=== PATIENT | female | born 1970 | race Caucasian/White ===

== ENCOUNTER 2021-04-04 14:27 | Emergency (ER) | payer OTHER ==
[2021-04-04 15:00] VITALS: BP 163/97
[2021-04-04] MEDS ORDERED: IBUPROFEN 600 MG TAB PO ONE (17:13)
[2021-04-04] MEDS ORDERED: HYOSCYAMINE SUBL 0.125 MG TAB SL ONE (17:14)
[2021-04-04] MEDS ORDERED: ONDANSETRON 4 MG ODT TAB PO ONE (17:14)
[2021-04-04 17:31] LABS: Basophils # (Auto) 0.1 K/mm3 (0.0-0.1); Basophils % (Auto) 0.9 % (0.0-1.8); Eosinophils # (Auto) 0.1 K/mm3 (0.0-0.4); Eosinophils % (Auto) 1.1 % (0.0-4.3); Hematocrit 40.6 % (30.3-42.9); Hemoglobin 12.8 gm/dl (10.1-14.3); Lymphocytes # (Auto) 2.6 K/mm3 (1.2-5.4); Lymphocytes % (Auto) 37.1 % (13.4-35.0); Mean Corpuscular HGB Conc 32 % (30-34); Mean Corpuscular Volume 82 fl (79-97); Monocytes # (Auto) 0.3 K/mm3 (0.0-0.8); Monocytes % (Auto) 4.1 % (0.0-7.3); Platelet Count 255 K/mm3 (140-440); Red Blood Count 4.98 M/mm3 (3.65-5.03); Red Cell Distribution Width 15.4 % (13.2-15.2)
[2021-04-04 17:46] LABS: Alanine Aminotransferase 18 units/L (7-56); Albumin 4.9 g/dL (3.9-5); Blood Urea Nitrogen 7 mg/dL (7-17); Hemolysis Index 195
[2021-04-04 17:53] LABS: BUN/Creatinine Ratio 14
[2021-04-04] MEDS ORDERED: SODIUM CHLORIDE 0.9% 1000 ML 1,000 ML IV ONE (18:43)
--- NOTE | 2021-04-04 19:00 | Emergency Department Report ---
ED Abdominal Pain HPI - General Chief Complaint: Weakness Stated Complaint: DIZZINESS,ABD PAIN Time Seen by Provider: 04/04/21 17:12 Source: patient Mode of arrival: Ambulatory Limitations: No Limitations - History of Present Illness Initial Comments: The patient was evaluated in the emergency department for symptoms described in the history of present illness. He/she was evaluated in the context of the global COVID-19 pandemic, which necessitated consideration that the patient might be at risk for infection with the virus that causes COVID-19. In stitutional protocols and algorithms that pertain to the evaluation of patients at risk for COVID-19 are in a state of rapid change based on information released by regulatory bodies including the CDC and federal and state organizations. These policies and algorithms were followed during the patient's care in the emergency department. Please note that these policies, procedures and recommendations changed on a rapid basis. 50-year-old female presents to the emergency room complaining of dizziness like the room is spinning, headache epigastric pain x4 days. Patient states she had vomited the first 2 days. She denies any alcohol use. Her last menstrual period was 1 year ago. She denies any ear pain does have a cough denies any Covid. Has been vaccinated. Past medical history of hypertension hypercholesterolemia diabetes. Patient reports abdominal pain worse with dizzin ess Severity scale (0 -10): 7 - Related Data Previous Rx's Medication Instructions Recorded Last Taken Type Hyoscyamine Subl [Levsin Sl 0.125 0.125 mg SL Q6HR PRN #12 tab 04/04/21 Unknown Rx TAB] Ondansetron [Zofran Odt] 4 mg PO Q8HR PRN #15 tab.rapdis 04/04/21 Unknown Rx hydrOXYzine HCL [Atarax] 25 mg PO Q6HR PRN #15 tablet 04/04/21 Unknown Rx Allergies Allergy/AdvReac Type Severity Reaction Status Date / Time No Known Allergies Allergy Unverified 04/04/21 14:57 ED Review of Systems ROS: Stated complaint: DIZZINESS,ABD PAIN Other details as noted in HPI Comment: All other systems reviewed and negative ED Past Medical Hx - Past Medical History Previous Medical History?: Yes Hx Hypertension: Yes Hx Diabetes: Yes Additional medical history: high cholesterol - Surgical History Past Surgical History?: Yes Additional Surgical History: bariatric, - Medications Home Medications: Home Medications Medication Instructions Recorded Confirmed Last Taken Type Hyoscyamine Subl [Levsin Sl 0.125 0.125 mg SL Q6HR PRN #12 tab 04/04/21 Unknown Rx TAB] Ondansetron [Zofran Odt] 4 mg PO Q8HR PRN #15 tab.rapdis 04/04/21 Unknown Rx hydrOXYzine HCL [Atarax] 25 mg PO Q6HR PRN #15 tablet 04/04/21 Unknown Rx ED Physical Exam - General Limitations: No Limitations General appearance: alert, in no apparent distress - Head Head exam: Present: atraumatic, normocephalic - Eye Eye exam: Present: normal appearance - ENT ENT exam: Present: mucous membranes moist - Neck Neck exam: Present: normal inspection - Respiratory Respiratory exam: Present: normal lung sounds bilaterally. Absent: respiratory distress - Cardiovascular Cardiovascular Exam: Present: regular rate, normal rhythm. Absent: systolic murmur, diastolic murmur, rubs, gallop - GI/Abdominal GI/Abdominal exam: Present: soft, tenderness (Epigastric), normal bowel sounds - Extremities Exam Extremities exam: Present: normal inspection - Back Exam Back exam: Present: normal inspection - Neurological Exam Neurological exam: Present: alert, oriented X3, normal gait - Psychiatric Psychiatric exam: Present: normal affect, normal mood - Skin Skin exam: Present: warm, dry, intact, normal color. Absent: rash ED Course Vital Signs 04/04/21 14:59 Temperature 98.2 F Pulse Rate 75 Respiratory 15 Rate Blood Pressure 163/97 [Right] O2 Sat by Pulse 96 Oximetry ED Medical Decision Making - Lab Data Result diagrams: 04/04/21 17:18 04/04/21 17:18 - Medical Decision Making 50-year-old female presents to the emergency room complaining of dizziness like the room is spinning, headache epigastric pain x4 days. Patient states she had vomited the first 2 days. She denies any alcohol use. Her last menstrual period was 1 year ago. She denies any ear pain does have a cough denies any Covid. Has been vaccinated. Past medical history of hypertension hypercholesterolemia diabetes. Patient reports abdominal pain worse with dizziness CBC, CMP, INT, normal saline. Critical care attestation.: If time is entered above; I have spent that time in minutes in the direct care of this critically ill patient, excluding procedure time. ED Disposition Clinical Impression: Epigastric pain, Vertigo Disposition: HOME / SELF CARE / HOMELESS Is pt being admited?: No Does the pt Need Aspirin: No Condition: Stable Instructions: Dizziness, [id number], Abdominal Pain, Adult, [id number] Additional Instructions: Please take medication as prescribed. Increase your fluid intake. Prescriptions: hydrOXYzine HCL [Atarax] 25 mg PO Q6HR PRN #15 tablet PRN Reason: Itching Hyoscyamine Subl [Levsin Sl 0.125 TAB] 0.125 mg SL Q6HR PRN #12 tab PRN Reason: Abdominal pain Ondansetron [Zofran Odt] 4 mg PO Q8HR PRN #15 tab.rapdis PRN Reason: Nausea And Vomiting Referrals: [facility] [Provider Group] - 3-5 Days Time of Disposition: 19:25
== END 2021-04-04 20:50 | disposition home or self-care (01) ==
LOC: ED 14:27
DX: R10.13 Epigastric pain (principal); R42 Dizziness and giddiness; I10 Essential (primary) hypertension; E78.00 Pure hypercholesterolemia, unspecified; E11.8 Type 2 diabetes mellitus with unspecified complications; Z98.84 Bariatric surgery status; Z98.890 Other specified postprocedural states
CPT/HCPCS: 36415; 80053; 85025; 99283; J7030; Q0162